=== PATIENT | male | born 1980 | race Hispanic/Latino ===

== ENCOUNTER 2022-10-18 08:21 | Emergency (ER) | payer OTHER ==
[2022-10-18] MEDS ORDERED: Ibuprofen 800 MG TAB ONE (08:53)
== END 2022-10-18 09:36 | disposition home or self-care (01) ==
LOC: NAV ERS 08:21
DX: S33.5XXA Sprain of ligaments of lumbar spine, initial encounter (principal); M54.2 Cervicalgia; I10 Essential (primary) hypertension; E11.9 Type 2 diabetes mellitus without complications; E66.9 Obesity, unspecified; V89.2XXA Person injured in unspecified motor-vehicle accident, traffic, initial encounter; Z79.84 Long term (current) use of oral hypoglycemic drugs; Z79.82 Long term (current) use of aspirin
CPT/HCPCS: 72040; 72100